=== PATIENT | female | born 1995 | race Caucasian/White ===

== ENCOUNTER 2022-04-22 08:24 | Emergency (ER) | payer OTHER ==
[~2022-04-22] VITALS: Ht 167.6 cm; Wt 59.1 kg
[2022-04-22] MEDS ORDERED: ketorolac trometh. 30mg/ml inj. IV ONE (09:10)
[2022-04-22] MEDS ORDERED: ondansetron/PF 4mg/2ml inj IV ONE (09:10)
[2022-04-22] MEDS ORDERED: famotidine/PF 10 mg/ml inj IV ONE (09:10)
[2022-04-22 09:22] LABS: BASOPHILS % (AUTO) 0.1 % (0-1); EOSINOPHILS % (AUTO) 0.1 % (0-6); HEMATOCRIT 38.5 % (35.0-45.0); HEMOGLOBIN 13.3 g/dl (12.0-16.0); LYMPHOCYTES # (AUTO) 0.2 X10'3 (1.1-4.8); LYMPHOCYTES % (AUTO) 1.7 % (21-51); MEAN CORPUSCULAR HEMOGLOBIN 31.4 PG (27.0-31.0); MEAN CORPUSCULAR HGB CONC 34.4 g/dL (33.0-36.5); MEAN CORPUSCULAR VOLUME 91.3 FL (78-98); MEAN PLATELET VOLUME 7.2 FL (7.4-10.4); MONOCYTES # (AUTO) 0.6 X10'3 (0-0.9); NEUTROPHILS # (AUTO) 13.7 X10'3 (1.8-7.7); NEUTROPHILS % (AUTO) 94.1 % (42-75); PLATELET COUNT 276 X10'3 (140-440); RED BLOOD COUNT 4.22 X10'6 (4.20-5.60); WHITE BLOOD COUNT 14.6 X10'3 (4.5-11.0)
[2022-04-22 09:23] VITALS: BP_DIAS 80
[2022-04-22 09:43] LABS: ALANINE AMINOTRANSFERASE 18 U/L (12-78); ALBUMIN 4.3 G/DL (3.4-5.0); ALBUMIN/GLOBULIN RATIO 1.2 (1.1-1.5); ALKALINE PHOSPHATASE 47 IU/L (46-116); ANION GAP 12 (8-16); ASPARTATE AMINO TRANSFERASE 22 U/L (10-37); BILIRUBIN,TOTAL 1.5 MG/DL (0.1-1.0); BLOOD UREA NITROGEN 13 MG/DL (7-18); BUN/CREATININE RATIO 17.1 (6.6-38.0); CALCIUM 8.7 MG/DL (8.5-10.1); CHLORIDE 104 MMOL/L (99-107); CREATININE 0.76 MG/DL (0.40-0.90); GLUCOSE 115 MG/DL (70-104); LIPASE 87 U/L (73-393); SODIUM 141 MMOL/L (135-145); TOTAL CARBON DIOXIDE 25.2 MMOL/L (24-32); TOTAL PROTEIN 7.8 G/DL (6.4-8.2); eGFR > 90 ML/MIN
[2022-04-22 09:59] LABS: CLARITY,URINE SLIGHTLY CLOUDY (Clear); GLUCOSE, URINE NEGATIVE (Neg); KETONES,URINE 40 mg/dl (Neg); LEUKOCYTE ESTERASE ,URINE NEGATIVE (Neg); NITRITES, URINE NEGATIVE (Neg); OCCULT BLOOD,URINE NEGATIVE (Neg); PH,URINE 8.5 (4.8-8.0); PROTEIN,URINE TRACE mg/dl (Neg); URINE HCG NEGATIVE (NEG); UROBILINOGEN,URINE 0.2 E.U/dL (0.2-1.0)
[2022-04-22 10:01] LABS: COLOR,URINE DARK YELLOW (Yellow); UA COLLECTION TYPE CLN CATCH MIDSTREAM
[2022-04-22 10:05] VITALS: BP_SYST 118
[2022-04-22 10:07] LABS: BACTERIA,URINE 1+ /HPF (Neg); MUCUS STRANDS FEW /LPF (Neg); RBC,URINE 0-2 /HPF (0-2); SQUAMOUS EPITHELIAL CELL,UR MODERATE /LPF (FEW); WBC,URINE 0-4 /HPF (0-4)
[2022-04-22] MEDS ORDERED: ONDA4TAB12 PO (11:31)
[2022-04-22] MEDS ORDERED: proCHLORperazine 10 MG/2 ml inj IV ONE (11:35)
[2022-04-22] MEDS ORDERED: ondansetron 4mg rapidly disintigrating tab PO ONE (11:35)
== END 2022-04-22 12:47 | disposition home or self-care (01) ==
LOC: ER 08:26
DX: A08.4 Viral intestinal infection, unspecified (principal); M54.6 Pain in thoracic spine; Z79.899 Other long term (current) drug therapy
CPT/HCPCS: 36415; 76770; 76856; 80053; 81001; 81025; 83690; 85025; 87502; 87503; 93976; 96374; 96375; 99284; J0780; J1885; J2405; J3490; J7030